=== PATIENT | female | born 1995 | race Caucasian/White ===

== ENCOUNTER 2018-03-01 09:24 | Inpatient (IN) | payer OTHER ==
[~2018-03-01] VITALS: Ht 157.5 cm; Wt 111.0 kg
--- NOTE | 2018-03-11 14:16 | NUR ---
03/11/18 1416 Amelia Sanchez 1349: PT ARRIVES TO [facility] ROOM 104 FROM OR AWAKE, BUT DROWSY. PT RESP EVEN AND UNLABORED. PT DENIES N/V AND STATES A BURNING FEELING IN ABD. FUNDAL MASSAGE PERFORMED, LARGE CLOT EXPELLED. FBC RN TAKES CANDY PAD TO WEIGH. 1355: PT RESP CONT TO BE EVEN AND UNLABORED. PT STATES SHE IS "TIRED." MODERATE AMOUNT OF BLOOD NOTED ON CANDY PAD WITH FUNDAL MASSAGE, NO CLOTS NOTED AT THIS TIME. FAMILY AT BEDSIDE.
--- NOTE | 2018-03-11 14:54 | PR ---
[facility] [address] [facility] [place], [place] [address] Signed PP Progress Notes Datetime Report Generated by JAIME: 03/11/2018 14:54 SUBJECTIVE: [id number] Pain: Within normal limits Vital Signs: [id number] EXAM: [id number] IMPRESSION/PLAN/PROCEDURES: [id number] Other Impression: hemorrhage Progress Notes: Called to patient room w/ continued bleeding postop. Preop hgb 12.8. Pt w/ _ 800cc for EBL at time of procedure. Postoperatively, pt has had _500cc blood loss (see charting of weighted pads for exact EBL). She did receive one dose of methergine in the OR, and pitocin per protocol is running. She has received _1300cc of IV fluid. I ordered an additional dose of methergine while en route as well as tranexamic acid 1g IV stat. On exam, cervix was closed, fundus firm, and lower uterine segment seemed somewhat boggy. I was able to express _115cc blood with bimanual exam. Urine is clear. Reviewed pt does not have hx of asthma. Plan: will initially replace crystaloid at a 3:1 ratio. Tranexaminic acid infusing now. Consider additional doses of methergine, as well as possible hemabate. Will give cytotec 800mcg bucal. Will check CBC, fibrinogen, and coags stat. Reviewed possible need for Bakri balloon. Pt understands and agrees. Signing Physician: Denice Jones DO Copies: ~ *Electronically Signed* 03/11/18 7764 DENICE JONES DO PATIENT NAME: ROSALIE GUPTA PROGRESS NOTE DATE OF : 93 PHYSICIAN: DENICE JONES DO RPT #: [id number] REPORT IS CONFIDENTIAL AND NOT TO BE RELEASED WITHOUT AUTHORIZATION
--- NOTE | 2018-03-11 15:46 | PR ---
[facility] [address] [place], [place] [address] Signed PP Progress Notes Datetime Report Generated by CPN: 03/11/2018 15:46 SUBJECTIVE: [id number] Pain: Within normal limits Nausea/Vomiting: Present Vital Signs: [id number] Vital Signs: Reviewed Notable Details: Mild Tachycardia EXAM: [id number] Cardiovascular: Normal Respiratory: Normal Abdomen/Uterus: Normal Incision: Normal Exam Comments: Pt w/ continued light bleeding despite medical therapy. IMPRESSION/PLAN/PROCEDURES: [id number] Other Impression: Postopartum hemorrhage Progress Notes: Have been at the patient's bedside throughout. Pt w/ bleeding that is somewhat improved w/ methergine, hemabate, cytotec, and tranexamic acid. On exam, lower uterine feels boggy. Recommended Bakri. Pt very uncomfortable. Will place Bakri in the OR. Total EBL postop 1041cc, plus 800cc at time of section. 2nd IV in place, and crystaloid being replaced. Reviewed risks of Bakri in detail including infection, perforation, or failure requiring additional procedure such as hysterectomy. Discusse that hysterectomy would only be performed if significant life-threatening hemorrhage noted. Pt and family understand and agree. Consents signed. Signing Physician: Denice Jones DO Copies: ~ *Electronically Signed* 03/11/18 9951 DENICE JONES DO PATIENT NAME: ROSALIE GUPTA PROGRESS NOTE DATE OF : 93 PHYSICIAN: DENICE JONES DO RPT #: [id number] REPORT IS CONFIDENTIAL AND NOT TO BE RELEASED WITHOUT AUTHORIZATION
--- NOTE | 2018-03-11 17:25 | NUR ---
03/11/18 1725 Mirna Ayon 1700 PT ARRIVED IN PACU SLEEPY WITH NO C/O'S. OXYGEN SATS 87% ON RA. ENCOURAGED COUGH, DEEP BREATHING. O2 AT 2L VIA NC PLACED WITH SATS INCREASED TO 95%. BAKRI BALLOON IN PLACE WITH NO BLEEDING PRESENT. 1715 DR AT BEDSIDE. NO NEW ORDERS.
--- NOTE | 2018-03-12 08:03 | PR ---
[facility] [address] [place], [place] [address] Signed PP Progress Notes Datetime Report Generated by JAIME: 03/12/2018 08:03 SUBJECTIVE: [id number] Pain: Within normal limits Nausea/Vomiting: Denies Flatus: No Bowel Movement: No Vital Signs: [id number] Vital Signs: Reviewed Notable Details: Good urine output, Pulse @ bedside 95 bpm EXAM: [id number] Cardiovascular: Normal Respiratory: Normal Abdomen/Uterus: Normal Lochia: Normal Vulva/Perineum: Normal Breasts: Not Done CVA Tenderness: Normal Extremities: Normal Incision: Normal Exam Comments: Fundus Firm U = 0. Nontender. Wound not examined at this time. IMPRESSION/PLAN/PROCEDURES: [id number] Impression: Normal progression Other Impression: Postopartum hemorrhage Progress Notes: Pt seen and examined. Doing well. Hgb 8.5, Plts 136. Fibrinogen stable @ 358. Minimal bleeding (_10cc) since Bakri placement. Will continue to monitor, and if doing well in several hours will begin removal of Bakri fluid. Franco out now, and pt to have binder placed. Pt understands and agrees. Will reevaluate in _4 hrs. Signing Physician: Denice Jones DO Copies: ~ *Electronically Signed* 03/12/18 0803 DENICE JONES DO PATIENT NAME: ROSALIE GUPTA PROGRESS NOTE DATE OF : 93 PHYSICIAN: DENICE JONES DO RPT #: [id number] REPORT IS CONFIDENTIAL AND NOT TO BE RELEASED WITHOUT AUTHORIZATION
--- NOTE | 2018-03-12 12:20 | PR ---
[facility] [address] [place], [place] [address] Signed PP Progress Notes Datetime Report Generated by CPN: 03/12/2018 12:20 SUBJECTIVE: [id number] Pain: Within normal limits Nausea/Vomiting: Denies Flatus: Yes Bowel Movement: No Vital Signs: [id number] Vital Signs: Reviewed Notable Details: Slight htn, borderline tachy. Good urine output. EXAM: [id number] Cardiovascular: Normal Respiratory: Normal Abdomen/Uterus: Normal Lochia: Normal Vulva/Perineum: Normal Breasts: Not Done CVA Tenderness: Normal Extremities: Normal Incision: Normal Progress: Abnormal Exam Comments: Fundus Firm U=0, nontender. Incision well healing. IMPRESSION/PLAN/PROCEDURES: [id number] Impression: Normal progression Other Impression: PP hemorrhage; improved Plan: Continue present management Progress Notes: Pt seen and examined. Doing very well. Ambulating without lightheadedness/dizziness, voiding, and tolerating full diet. Pain well controlled. Lochia scant w/ Bakri in place. Hgb 8.5, Plts 136 and normal coags. No other complaints at this time. Will remove Bakri now and monitor for bleeding. Start oral iron BID. Check CBC in AM. Reviewed anticipated postop course w/ pt. All questions answered. Signing Physician: Denice Jones DO Copies: ~ *Electronically Signed* 03/12/18 2890 DENICE JONES DO PATIENT NAME: ROSALIE GUPTA PROGRESS NOTE DATE OF : 93 PHYSICIAN: DENICE JONES DO [facility] #: [id number] REPORT IS CONFIDENTIAL AND NOT TO BE RELEASED WITHOUT AUTHORIZATION
--- NOTE | 2018-03-12 18:43 | PR ---
[facility] [address] [facility] [place] [place] [address] Signed PP Progress Notes Datetime Report Generated by CPN: 03/12/2018 18:43 SUBJECTIVE: [id number] Pain: Within normal limits Nausea/Vomiting: Denies Flatus: Yes Bowel Movement: No Vital Signs: [id number] Vital Signs: Reviewed Notable Details: Pt w/ elevated BPs w/ forearm cuff. No NOBLE, RUQ pain, or visual changes. A properly sized cuff was placed on the R upper arm and balbir pressure noted. Will continue to monitor BPs overnight and RN will call if severe range BPs noted. Feel these elevated BPs are in error. EXAM: [id number] Cardiovascular: Normal Respiratory: Normal Abdomen/Uterus: Normal Lochia: Normal Vulva/Perineum: Not Done Breasts: Not Done CVA Tenderness: Normal Extremities: Normal Incision: Normal Progress: Abnormal Exam Comments: Fundus firm U - 2 nontender. No RUQ pain. Incision well healing. IMPRESSION/PLAN/PROCEDURES: [id number] Impression: Normal progression Other Impression: PP hemorrhage; improved Plan: Continue present management Progress Notes: Pt seen and examined. Doing well. Scant bleeding. No other symptoms. BPs were elevated as above, but this was with a small forearm cuff. With properly size upper arm cuff, bp was normal. Will continue to monitor. Signing Physician: Denice Jones DO Copies: ~ *Electronically Signed* 03/12/18 0524 DENICE JONES DO PATIENT NAME: ROSALIE GUPTA PROGRESS NOTE DATE OF : 93 PHYSICIAN: DENICE JONES DO RPT #: [id number] REPORT IS CONFIDENTIAL AND NOT TO BE RELEASED WITHOUT AUTHORIZATION
--- NOTE | 2018-03-13 07:36 | PR ---
[facility] [address] [place], [place] [address] Signed PP Progress Notes Datetime Report Generated by JAIME: 03/13/2018 07:36 SUBJECTIVE: [id number] Pain: Within normal limits Nausea/Vomiting: Denies Flatus: Yes Bowel Movement: No Vital Signs: [id number] Vital Signs: Reviewed; Within Normal Limits Notable Details: No elevated BPs overnight w/ properly sized cuff EXAM: [id number] Cardiovascular: Normal Respiratory: Normal Abdomen/Uterus: Normal Lochia: Normal Vulva/Perineum: Not Done Breasts: Not Done CVA Tenderness: Normal Extremities: Normal Incision: Normal Progress: Not Applicable Exam Comments: Fundus firm U-2 nontender. incision healing well w/ ary in place. IMPRESSION/PLAN/PROCEDURES: [id number] Impression: Normal progression Other Impression: PP hemorrhage; improved Plan: Discharge Progress Notes: Pt seen and examined. Doing well. Ambulating, voiding, and tolerating full diet. Pain and lochia minimal. Scant blood loss since Bakri removal yesterday. Pt is bottle feeding. Rh neg s/p Rhogam. Hgb stable 8.5 and pt asymptomatic. Pt strongly desires d/c home. Plan: d/c pt home. Return to clinic tomorrow for staple removal. Discharge meds norco and ferrous sulfate as pt has an ibuprofen allergy. F/U Jones 2 wks, sooner if needed Signing Physician: Denice Jones DO Copies: ~ *Electronically Signed* 03/13/18 0736 DENICE JONES DO PATIENT NAME: ROSALIE GUPTA PROGRESS NOTE DATE OF : 93 PHYSICIAN: DENICE JONES DO RPT #: [id number] REPORT IS CONFIDENTIAL AND NOT TO BE RELEASED WITHOUT AUTHORIZATION
--- NOTE | 2018-04-01 07:38 | OR ---
[facility] [address] [place], [place] [address] Signed DATE OF OPERATION: 03/11/2018 SURGEON: Denice Jones DO PREOPERATIVE DIAGNOSES: 1. Term intrauterine . 2. History of prior x3. 3. History of severe pelvic adhesions. 4. Obesity. 5. Limited care. 6. Rh negative, status post RhoGAM. POSTOPERATIVE DIAGNOSES: 1. Term intrauterine . 2. History of prior x3. 3. History of severe pelvic adhesions. 4. Obesity. 5. Limited care. 6. Rh negative, status post RhoGAM. PROCEDURES PERFORMED: 1. Repeat low transverse delivery. 2. Partial bilateral salpingectomy. 3. Lysis of adhesions GEOSPATIAL IMAGE ANALYST: Ross Kim MD ANESTHESIA: Spinal. ESTIMATED BLOOD LOSS: 800 mL. COMPLICATIONS: None. FINDINGS: Viable female born in the GWENDOLYN position with no nuchal cord with Apgars of 8 and 9 at one and five minutes respectively and a weight of 6 pounds 15 ounces. Normal tubes Electronically Signed By: DENICE JONES DO 04/01/18 0738 PATIENT NAME: ROSALIE BAKER OPERATIVE REPORT DATE OF : [birth year] REPORT #: [id number] PHYSICIAN: DENICE JONES DO PCP: DENICE JONES DO REPORT IS CONFIDENTIAL AND NOT TO BE RELEASED WITHOUT AUTHORIZATION [facility] [address] [place], [place] [address] Signed and ovaries. However, there are massive adhesions of the abdomen to the anterior abdominal wall including omental, bladder, and peritoneal adhesions. Successful bilateral tubal ligation with good hemostasis at the end of the procedure. A somewhat boggy uterus that responds to Pitocin, Methergine, and uterine massage. INDICATIONS: Ms. Baker is a pleasant 22-year-old G4, P3, female, who presented to the hospital for scheduled repeat low transverse delivery with bilateral tubal ligation. is complicated by limited care, history of prior C-sections with massive intraabdominal adhesions noted in the last operative note as well as a very thin lower uterine segment. The patient strongly desired a tubal ligation with her last , but was unable to get this and again desires this today. It was reviewed by the ethics committee and approved and consent had previously been signed. She is also Rh negative and received RhoGAM. Risks, benefits, and alternatives were discussed in detail with this patient. The patient understands and wishes to proceed with the procedure. DESCRIPTION OF PROCEDURE: The patient was taken to the operating room, where a time-out was performed to confirm correct patient, correct procedure. Spinal anesthesia was adequately established. The patient was then prepped and draped in the supine position with a bump under her right hip. A Franco catheter was inserted and the patient received 3 g Ancef preoperatively per SCIP protocol. No heparin was indicated. Once spinal anesthetic was noted to be adequate, a Pfannenstiel skin incision was made and incision was carried down to the fascia. The fascia was nicked laterally and the underlying rectus muscle was noted. Fascial incision was extended bilaterally using Haji scissors. The fascia was grasped with Kochers, elevated, and the underlying rectus muscle was begun to be dissected. The lower portion of the fascial incision was easily brought down with moderate adhesions between the rectus to the pubic symphysis. However, the upper edge of the fascial incision was completely adherent with scar. Careful blunt dissection was performed to thin the scar tissue and once no bowel was identified in each thin portion, this was brought down with curved Haji scissors. This process was repeated until a peritoneal window was created and the surgeon's fingers were placed into the abdominal cavity and no adherent bowel was noted. Again, small dissection bites were made only after careful identification of normal anatomy was performed. Dense omental adhesions were noted bilaterally necessitating double clamping and sharp lysis of the omental adhesions. These were made hemostatic with free ties of 0 chromic. After extensive lysis of adhesions was performed, somewhat normal anatomy was reestablished. The bladder was noted to be scarred onto the lower uterine segment and this was carefully dissected down by creating a bladder flap and bluntly dissecting the bladder off the lower segment. Once this was performed, hysterotomy was performed using a surgical scalpel. The lower uterine segment was noted to be extremely thin. Hysterotomy was extended bilaterally Electronically Signed By: DENICE JONES DO 04/01/18 0738 PATIENT NAME: ROSALIE BAKER OPERATIVE REPORT DATE OF : [birth year] REPORT #: [id number] PHYSICIAN: DENICE JONES DO PCP: DENICE JONES DO REPORT IS CONFIDENTIAL AND NOT TO BE RELEASED WITHOUT AUTHORIZATION [facility] [address] [place] [address] [place] [address] Signed using blunt dissection and the amniotic sac was ruptured with hemostats. The surgeon's hand was then placed into the uterine cavity. The head elevated and delivered with the assistance of fundal pressure. The was vigorous upon delivery. After easily delivered and the cord was then doubly clamped and cut, the handed to the waiting pediatric team for further care. Cord blood was obtained for routine analysis and a section of the cord was retained. The placenta was then carefully expressed intact with a centrally inserted three-vessel cord noted. The uterus was easily exteriorized and no scarring on the back of the uterus or adnexa was noted. The uterus was cleared of any remaining products of conception or clot and hysterotomy was repaired using 0 Vicryl in a running locked fashion. A 2nd imbricating suture was then applied with good hemostasis noted. The uterus was somewhat boggy and an additional 20 units of Pitocin were placed into the bag. Methergine was also given by Anesthesia. The uterus responded to medications and to massage and tone was noted to be normal. Attention was then turned to the tubal ligation. We confirmed again with the patient that she desired tubal ligation and she again confirmed this. The fallopian tube on the right was grasped with [place], elevated, and a window was made in an avascular portion of the mesosalpinx using Bovie electrocautery. Hemostat was placed and clamped proximal and distal and an approximately 5 cm portion was excised using Metzenbaum scissors. The cut ends of the tube were ligated using 0 chromic with good hemostasis noted. The process was repeated on the left without complication. Careful examination of the adnexa shows good hemostasis. The pericolic gutters were cleared of any clots and the abdomen was irrigated copiously. The uterus was replaced and tension was returned to the lower uterine segment. Good hemostasis was appreciated and Evicel was applied to the lower uterine segment. A cell sheet was then applied to the lower uterine segment and the peritoneum was reapproximated using 2-0 Vicryl in a running nonlocked manner. The rectus muscle was then examined and made hemostatic with Bovie electrocautery. ACell powder was then applied to the rectus sheath and fascia was then reapproximated using 0 Vicryl in a running nonlocked manner. Subcu was reapproximated using 2-0 Vicryl in two layers and the skin was then reapproximated using surgical ary. The uterus was Crede'd for small amount of blood and the patient was taken to PACU in good and stable condition. Sponge, needle, and instrument count was correct x2 at the end of the procedure. Dr. Kim was present and participated in all portions of the procedure. Denice Jones DO JDW/MODL Electronically Signed By: DENICE JONES DO 04/01/18 0738 PATIENT NAME: ALONSOROSALIE JOHNSON OPERATIVE REPORT DATE OF : [birth year] REPORT #: [id number] PHYSICIAN: DENICE JONES DO PCP: DENICE JONES DO REPORT IS CONFIDENTIAL AND NOT TO BE RELEASED WITHOUT AUTHORIZATION [address] [place], [place] [address] Signed /[id number] Copies: ~ Electronically Signed By: DENICE JONES DO 04/01/18 0738 PATIENT NAME: ROSALIE BAKER OPERATIVE REPORT DATE OF : [birth year] REPORT #: [id number] PHYSICIAN: DENICE JONES DO PCP: DENICE JONES DO REPORT IS CONFIDENTIAL AND NOT TO BE RELEASED WITHOUT AUTHORIZATION
--- NOTE | 2018-04-01 07:43 | OR ---
[facility] [address] [place] [address] Signed DATE OF OPERATION: 03/11/2018 SURGEON: Denice Jones DO PREOPERATIVE DIAGNOSES: 1. hemorrhage, failed medical therapy. 2. Status post repeat low transverse delivery with tubal ligation. POSTOPERATIVE DIAGNOSES: 1. hemorrhage, failed medical therapy. 2. Status post repeat low transverse delivery with tubal ligation. PROCEDURES PERFORMED: 1. Exam under anesthesia. 2. Ultrasound-guided Bakri balloon placement. ZIPPER SLIDE ATTACHER: Ross Kim MD ANESTHESIA: Spinal. ESTIMATED BLOOD LOSS: 400 mL of clot evacuated at the beginning of the procedure with zero additional loss noted. SPECIMEN: None. IMPLANTS: Bakri balloon. FINDINGS: Normal vagina and cervix. Approximately 400 mL of clot evacuated at the beginning of the procedure. Under ultrasound guidance, Bakri was easily placed and filled with 420 mL of sterile saline. The patient was observed for approximately 50 minutes after Bakri placement. No initial bleeding was noted. COMPLICATIONS: None. Electronically Signed By: DENICE JONES DO 04/01/18 0743 PATIENT NAME: ROSALIE BAKER OPERATIVE REPORT DATE OF : [birth year] REPORT #: [id number] PHYSICIAN: DENICE JONES DO PCP: DENICE JONES DO REPORT IS CONFIDENTIAL AND NOT TO BE RELEASED WITHOUT AUTHORIZATION [address] [address] Signed INDICATIONS: Ms. Baker is a pleasant 22-year-old G4, female, who earlier this afternoon underwent a repeat low transverse delivery with bilateral tubal ligation. That procedure was notable for severe abdominal adhesions that were lysed. The patient also did have some atony of the uterus that resolved with Methergine and additional Pitocin as well as uterine massage. Postoperatively the patient developed consistent vaginal bleeding that was evaluated and treated medically. Please see charting from OB for details. However, estimated blood loss was approximately 1800 in total including the delivery. The patient was treated with Methergine, Pitocin, Cytotec, Hemabate, and tranexamic acid and continued to have bleeding. The patient was not tolerating bedside exams or fundal massage and decision was made to proceed with Bakri placement under anesthesia. Risks, benefits, and alternatives were discussed in detail with the patient. The patient understands and wished to proceed with the procedure. Preoperative hemoglobin was 12.0 with normal coags and fibrinogen. DESCRIPTION OF PROCEDURE: The patient was taken to the operating room, where a time-out was performed to confirm correct patient and correct procedure. Spinal anesthesia was adequately established. The patient was then prepped and draped in the dorsal lithotomy position with her feet in Yellofin stirrups. ICPs were on and running and no preoperative antibiotics were indicated. A bimanual exam was performed that demonstrated a boggy uterus with significant intracavitary clot. The clot was explored with the surgeon's finger and manually expressed. The uterus did clamp down a fair amount once the clot was evacuated and approximately 400 mL were evacuated. A weighted speculum was then placed and the anterior lip of the cervix was grasped with a ring forceps. A Bakri balloon was prepared per lease analyst's instructions and advanced through the fundus with the assistance of ultrasound guidance. The Bakri was then instilled with 420 mL of normal saline with good placement continued to be noted both on ultrasound and on exam. No additional bleeding was noted at 420 mL and no additional fluid was placed. The patient was observed for 15 minutes approximately in the OR with no additional bleeding noted. The patient was then taken to the PACU in good and stable condition. Sponge, needle, and instrument count was correct x2 at the end of the procedure. Dr. Kim was present and participated in all portions of the procedure. Denice Jones DO Electronically Signed By: DENICE JONES DO 04/01/18 0743 PATIENT NAME: ROSALIE BAKER OPERATIVE REPORT DATE OF : [birth year] REPORT #: [id number] PHYSICIAN: DENICE JONES DO PCP: DENICE JONES DO REPORT IS CONFIDENTIAL AND NOT TO BE RELEASED WITHOUT AUTHORIZATION [address] [address] Signed [place]/ELROY /[id number] Copies: ~ Electronically Signed By: DENICE JOENS DO 04/01/18 0743 PATIENT NAME: ROSALIE BAKER OPERATIVE REPORT DATE OF : [birth year] REPORT #: [id number] PHYSICIAN: DENICE JONES DO PCP: DENICE JONES DO REPORT IS CONFIDENTIAL AND NOT TO BE RELEASED WITHOUT AUTHORIZATION
== END 2018-03-13 13:00 | disposition home or self-care (01) | DRG 784 ==
LOC: FBC 03-11 09:34
PROVIDERS: ADMIT Obstetrics & Gynecology
PROC: 0UB70ZZ Excision of Bilateral Fallopian Tubes, Open Approach (ICD-10-PCS; principal; 2018-03-11 10:15)
PROC: 10D00Z1 Extraction of Products of Conception, Low, Open Approach (ICD-10-PCS; 2018-03-11 12:00)
DX: O34.211 Maternal care for low transverse scar from previous cesarean delivery (principal); O72.2 Delayed and secondary postpartum hemorrhage; Z3A.39 39 weeks gestation of pregnancy; Z37.0 Single live birth; Z30.2 Encounter for sterilization; O26.893 Other specified pregnancy related conditions, third trimester; O99.214 Obesity complicating childbirth; Z67.31 Type AB blood, Rh negative
CPT/HCPCS: 00940; 01961; 36415; 80053; 83030; 85025; 85027; 85384; 85610; 85730; 86850; 86900; 86901; C1763; J0131; J0690; J1100; J1200; J1650; J1885; J2210; J2250; J2274; J2300; J2370; J2405; J2550; J2590; J2790; J3010; J7120